=== PATIENT | male | born 1975 | race Native Hawaiian/Other Pacific Islander ===

== ENCOUNTER 2021-05-27 22:52 | Emergency (ER) | payer OTHER ==
[~2021-05-27] VITALS: Ht 165.1 cm; Wt 56.7 kg
[2021-05-27] MEDS ORDERED: NEURONTIN 100M100 MG PO (23:15)
[2021-05-27] MEDS ORDERED: OMEPRAZOLE DR40 MG PO (23:16)
[2021-05-27] MEDS ORDERED: QUET100T2 PO (23:16)
[2021-05-27 23:40] LABS: PLATELET COUNT 405 K/uL (142-355)
[2021-05-27 23:41] LABS: POTASSIUM 4.3 mmol/L (3.6-5.2)
[2021-05-28 01:15] VITALS: BP 145/92; TEMP 98.4
== END 2021-05-28 01:15 | disposition home or self-care (01) ==
LOC: ED 23:06
PROVIDERS: Family Medicine
DX: F32.89 Other specified depressive episodes (principal); M62.838 Other muscle spasm; R10.32 Left lower quadrant pain
CPT/HCPCS: 80053; 80307; 81000; 85027; 96360; 96375; 99284; J1885